=== PATIENT | male | born 1970 | race Caucasian/White ===

== ENCOUNTER 2021-04-19 14:59 | Emergency (ER) | payer OTHER ==
[~2021-04-19] VITALS: Ht 175.3 cm; Wt 80.0 kg
[2021-04-19 15:29] VITALS: BP 104/67
[2021-04-19 16:13] LABS: CHLORIDE 100 mEq/L (98-107)
[2021-04-19 16:16] LABS: EOSINOPHILS % 1.5 % (0.0-5.0); HEMATOCRIT. 53.3 % (42.0-52.0); HEMOGLOBIN. 18.1 g/dL (14.0-18.0); MEAN CORPUSCULAR VOLUME 97.3 fL (80.0-94.0); MEAN PLATELET VOLUME 9.9 fl (7.4-10.4); MONOCYTES % 10.2 % (2.0-8.0); NEUTROPHILS % 45.3 % (40.0-76.0); PLATELET 177 x1000/uL (130-400); RED BLOOD CELL COUNT 5.48 mill/uL (4.7-6.1); RED CELL DISTRIBUTION WIDTH 14.3 % (11.6-14.6)
[2021-04-19 16:17] LABS: ETHANOL BLOOD 187 mg/dL
[2021-04-19] MEDS ORDERED: TETANUS, DIPHTHERIA, PERTUSSIS VAC/PF 0.5ML (>10YR OLD) IM ONE (16:45)
== END 2021-04-19 17:59 | disposition left against medical advice (07) ==
LOC: EDBD 14:59 → ER 14:59
DX: R51.9 Headache, unspecified (principal)
CPT/HCPCS: 36415; 80053; 80320; 85025; 90471; 90715; 99284; G0480

== ENCOUNTER 2021-05-11 14:52 | Emergency (ER) | payer MEDICAID, OTHER ==
[~2021-05-11] VITALS: Ht 185.4 cm; Wt 113.0 kg
[2021-05-11] MEDS ORDERED: SODIUM CHLORIDE 0.9% 1,000 ML IV ONE (16:00)
[2021-05-11 16:40] LABS: EOSINOPHILS % 1.7 % (0.0-5.0); MEAN CORPUSCULAR HEMOGLOBIN 32.5 pg (28.0-32.0); MEAN CORPUSCULAR VOLUME 97.8 fL (80.0-94.0); MEAN PLATELET VOLUME 8.4 fl (7.4-10.4); MONOCYTES % 8.9 % (2.0-8.0); NEUTROPHILS % 60.4 % (40.0-76.0); PLATELET 262 x1000/uL (130-400); RED BLOOD CELL COUNT 5.22 mill/uL (4.7-6.1)
[2021-05-11 16:46] LABS: CHLORIDE 105 mEq/L (98-107)
[2021-05-11 16:51] LABS: ETHANOL BLOOD 87 mg/dL
[2021-05-11 19:07] LABS: CLARITY URINE CLEAR (CLEAR); COLOR URINE YELLOW (YELLOW); KETONES URINE NEGATIVE (NEGATIVE); LEUKOCYTE ESTERASE URINE NEGATIVE (NEGATIVE); NITRITE URINE NEGATIVE (NEGATIVE); OCCULT BLOOD URINE NEGATIVE (NEGATIVE); PROTEIN URINE NEGATIVE (NEGATIVE); SPECIFIC GRAVITY URINE 1.003 (1.005-1.030); UROBILINOGEN URINE 0.2 E.U./dL (0.2-1.0)
[2021-05-11 19:19] LABS: *BARBITURATES SCREEN URINE NEGATIVE (NEGATIVE); *BENZODIAZEPINES SCREEN URINE NEGATIVE (NEGATIVE); *COCAINE SCREEN URINE NEGATIVE (NEGATIVE); METHADONE URINE SCREEN NEGATIVE (NEGATIVE); OPIATES URINE SCREEN NEGATIVE (NEGATIVE); PHENCYCLIDINE URINE SCREEN PRESUMTIVE POSITIVE (NEGATIVE)
[2021-05-11 19:20] LABS: *AMPHETAMINES SCREEN URINE NEGATIVE (NEGATIVE); CANNABINOID URINE SCREEN NEGATIVE (NEGATIVE)
[2021-05-11 23:30] VITALS: BP 118/82
== END 2021-05-12 02:22 | disposition home health service (06) ==
LOC: ER 14:52
DX: G92.9 Unspecified toxic encephalopathy (principal); F17.290 Nicotine dependence, other tobacco product, uncomplicated; F12.10 Cannabis abuse, uncomplicated; F16.10 Hallucinogen abuse, uncomplicated
CPT/HCPCS: 36415; 70450; 80053; 80305; 80307; 80320; 80329; 81003; 85025; 93005; 96360; 99285; 99406; J7030; G0480

== ENCOUNTER 2021-07-09 19:26 | Emergency (ER) | payer MEDICAID, OTHER ==
[~2021-07-09] VITALS: Ht 182.9 cm; Wt 98.0 kg
[2021-07-09 20:23] LABS: EOSINOPHILS % 0.9 % (0.0-5.0); HEMATOCRIT. 54.8 % (42.0-52.0); HEMOGLOBIN. 18.2 g/dL (14.0-18.0); LYMPHOCYTES % 40.6 % (20.0-50.0); MEAN CORPUSCULAR HEMOGLOBIN 32.7 pg (28.0-32.0); MEAN CORPUSCULAR VOLUME 98.2 fL (80.0-94.0); MEAN PLATELET VOLUME 8.2 fl (7.4-10.4); NEUTROPHILS % 47.5 % (40.0-76.0); PLATELET 244 x1000/uL (130-400); RED BLOOD CELL COUNT 5.58 mill/uL (4.7-6.1)
[2021-07-09 20:28] LABS: CHLORIDE 105 mEq/L (98-107)
[2021-07-09 20:34] LABS: ETHANOL BLOOD 77 mg/dL
[2021-07-09 22:48] VITALS: BP 125/70
== END 2021-07-09 22:51 | disposition home or self-care (01) ==
LOC: ER 19:26
DX: T51.91XA Toxic effect of unspecified alcohol, accidental (unintentional), initial encounter (principal); T40.991A Poisoning by other psychodysleptics [hallucinogens], accidental (unintentional), initial encounter; Y92.89 Other specified places as the place of occurrence of the external cause
CPT/HCPCS: 36415; 80053; 80307; 80320; 80329; 85025; 93005; 99291; G0480

== ENCOUNTER 2021-09-07 15:27 | Emergency (ER) | payer MEDICAID, OTHER ==
[~2021-09-07] VITALS: Ht 180.3 cm; Wt 86.0 kg
[2021-09-07 15:30] VITALS: BP 106/66
[2021-09-07] MEDS ORDERED: SODIUM CHLORIDE 0.9% 1,000 ML IV ONE (15:45)
[2021-09-07 16:55] LABS: BASOPHILS % 0.8 % (0.0-2.0); EOSINOPHILS % 1.2 % (0.0-5.0); HEMATOCRIT. 49.2 % (42.0-52.0); HEMOGLOBIN. 16.8 g/dL (14.0-18.0); LYMPHOCYTES % 46.3 % (20.0-50.0); MEAN CORPUSCULAR HEMOGLOBIN 32.8 pg (28.0-32.0); MEAN CORPUSCULAR VOLUME 95.8 fL (80.0-94.0); MEAN PLATELET VOLUME 8.1 fl (7.4-10.4); MONOCYTES % 8.2 % (2.0-8.0); NEUTROPHILS % 43.5 % (40.0-76.0); PLATELET 199 x1000/uL (130-400); RED BLOOD CELL COUNT 5.14 mill/uL (4.7-6.1); RED CELL DISTRIBUTION WIDTH 13.5 % (11.6-14.6)
[2021-09-07 17:02] LABS: CHLORIDE 106 mEq/L (98-107)
[2021-09-07 17:06] LABS: ETHANOL BLOOD 22 mg/dL
== END 2021-09-07 17:14 | disposition left against medical advice (07) ==
LOC: ER 15:27
DX: F16.129 Hallucinogen abuse with intoxication, unspecified (principal); E16.2 Hypoglycemia, unspecified; F11.10 Opioid abuse, uncomplicated; F12.10 Cannabis abuse, uncomplicated
CPT/HCPCS: 36415; 80053; 80307; 80320; 80329; 85025; 96360; 99283; J7030; G0480